=== PATIENT | male | born 1995 | race Caucasian/White ===

== ENCOUNTER 2017-11-27 10:03 | Emergency (ER) | payer BC ==
[2017-11-27] MEDS ORDERED: KETOROLAC 60 MG/2 ML VIAL IM STA (10:33)
--- NOTE | 2017-11-27 10:35 | ED ---
General Adult HPI - General Chief complaint: Chest Pain Stated complaint: chest pain Time Seen by Provider: 11/27/17 10:05 Source: patient, RN notes reviewed Mode of arrival: wheelchair - History of Present Illness Initial comments: This is a 22-year-old male who presents emergency Department with no significant past medical history. Patient states since Saturday he's been having a sharp chest pain or left side of his chest. Patient states he doesn't take deep breath he has no pain. Patient states with a deep breath cough or palpation he has increased pain. Patient does not remember doing anything that would've injured his chest. Patient denies any shortness of breath. Patient denies any diaphoresis. Patient denies any nausea. Patient denies any abdominal pain. Patient denies any calf pain. Patient denies any leg swelling. Patient has a recent long trips or travel. Her dizzy. Patient denies any near syncopal episode. - Related Data Home Medications Medication Instructions Recorded Confirmed Fludrocortisone Acetate 0.05 mg PO HS 06/07/14 11/27/17 Fludrocortisone Acetate 0.1 mg PO QAM 06/07/14 11/27/17 Hydrocortisone 2.5 mg PO W/LUNCH 06/07/14 11/27/17 Hydrocortisone 12.5 mg PO HS 06/07/14 11/27/17 Hydrocortisone 15 mg PO QAM 06/07/14 11/27/17 Allergies Allergy/AdvReac Type Severity Reaction Status Date / Time No Known Allergies Allergy Verified 11/27/17 10:21 Review of Systems ROS Statement: Those systems with pertinent positive or pertinent negative responses have been documented in the HPI. ROS Other: All systems not noted in ROS Statement are negative. Past Medical History Additional Past Medical History / Comment(s): congenital adrenal hyperplasia History of Any Multi-Drug Resistant Organisms: None Reported Past Surgical History: No Surgical Hx Reported Past Anesthesia/Blood Transfusion Reactions: No Reported Reaction Past Psychological History: No Psychological Hx Reported Smoking Status: Never smoker Past Alcohol Use History: None Reported Past Drug Use History: None Reported - Past Family History Mother Family Medical History: No Reported History General Exam - General Exam Comments Initial Comments: GENERAL: Patient is well-developed and well-nourished. Patient is nontoxic and well- hydrated and is in no acute distress. ENT: Neck is soft and supple. No significant lymphadenopathy is noted. Oropharynx is clear. Moist mucous membranes. Neck has full range of motion without eliciting any pain. EYES: The sclera were anicteric and conjunctiva were pink and moist. Extraocular movements were intact and pupils were equal round and reactive to light. Eyelids were unremarkable. PULMONARY: Unlabored respirations. Good breath sounds bilaterally. No audible rales rhonchi or wheezing was noted. CARDIOVASCULAR: There is a regular rate and rhythm without any murmurs gallops or rubs. Pain is reproducible. ABDOMEN: Soft and nontender with normal bowel sounds. No palpable organomegaly was noted. There is no palpable pulsatile mass. SKIN: Skin is clear with no lesions or rashes and otherwise unremarkable. NEUROLOGIC: Patient is alert and oriented x3. Cranial nerves II through XII are grossly intact. Motor and sensory are also intact. Normal speech, volume and content. Symmetrical smile. MUSCULOSKELETAL: Normal extremities with adequate strength and full range of motion. No lower extremity swelling or edema. No calf tenderness. LYMPHATICS: No significant lymphadenopathy is noted PSYCHIATRIC: Normal psychiatric evaluation. Course Vital Signs 11/27/17 10:07 Temperature 98.2 F Pulse Rate 84 Respiratory 18 Rate Blood Pressure 132/79 O2 Sat by Pulse 98 Oximetry Medical Decision Making - Medical Decision Making Chest x-ray shows no acute abnormality. When patient took off her shirt there was bruising CHEST he states this weekend he was out drinking he doesn't know what happened he didn't even realize he had bruising on his chest. Patient's EKG shows sinus bradycardia at 54 bpm NH interval is 126 QRS is 90 QT interval 394 QTC is 373. Patient's EKG shows no ST segment elevation or depression or T wave abnormalities are noted. Disposition Clinical Impression: Chest wall contusion Disposition: HOME SELF-CARE Condition: Good Instructions: Chest Wall Pain (ED) Additional Instructions: Patient should take Motrin 600 every 6 hours when necessary for pain. Is patient prescribed a controlled substance at d/c from ED?: No Referrals: Ramonita Ashley DO [Primary Care Provider] - 1-2 days
--- NOTE | 2017-11-27 11:56 | XR ---
EXAMINATION TYPE: XR chest 2V DATE OF EXAM: 11/27/2017 COMPARISON: 09/12/2014 INDICATION: Difficulty breathing TECHNIQUE: Frontal and lateral views of the chest are obtained. FINDINGS: The heart size is normal. The pulmonary vasculature is normal. The lungs are clear. IMPRESSION: 1. No acute pulmonary process.
[2017-11-27 12:37] VITALS: BP 126/57; PULSE 67; RESP 16; TEMP 98.5
== END 2017-11-27 12:36 | disposition home or self-care (01) ==
LOC: EC 10:03
DX: S20.219A Contusion of unspecified front wall of thorax, initial encounter (principal); Z79.52 Long term (current) use of systemic steroids
CPT/HCPCS: 99285; 96372; 93005; 71046; J1885

== ENCOUNTER 2023-12-18 22:28 | Emergency (ER) | payer BC ==
--- NOTE | 2023-12-19 00:16 | ED ---
General Adult HPI - General Chief complaint: Nausea/Vomiting/Diarrhea Stated complaint: Hot flashes, Vomit Time Seen by Provider: 12/18/23 23:51 Source: patient Mode of arrival: ambulatory Limitations: no limitations - History of Present Illness Initial comments: Dictation was produced using [employer] dictation software. please excuse any grammatical, word or spelling errors. Chief Complaint: 28-year-old male presents emergency department nausea vomiting and fatigue History of Present Illness: Patient 28-year-old male presents emergency department nausea vomiting and fatigue. Patient states that he was out all day in the sun baling hay. Patient states he was wearing a longsleeve shirt. Patient started to feel nauseated after being in the sun exposed to sunlight for hours. Patient denies any soreness. States that she started to chills. He had some episodes of vomiting. States his emesis is nonbilious nonbloody. The ROS documented in this emergency department record has been reviewed and confirmed by me. Those systems with pertinent positive or negative responses have been documented in the HPI. All other systems are other negative and/or noncontributory. - Related Data Home Medications Medication Instructions Recorded Confirmed Fludrocortisone Acetate 0.05 mg PO HS 06/07/14 11/27/17 Fludrocortisone Acetate 0.1 mg PO QAM 06/07/14 11/27/17 Hydrocortisone 2.5 mg PO W/LUNCH 06/07/14 11/27/17 Hydrocortisone 12.5 mg PO HS 06/07/14 11/27/17 Hydrocortisone 15 mg PO QAM 06/07/14 11/27/17 Allergies Allergy/AdvReac Type Severity Reaction Status Date / Time No Known Allergies Allergy Verified 12/18/23 22:51 Review of Systems ROS Statement: Those systems with pertinent positive or pertinent negative responses have been documented in the HPI. ROS Other: All systems not noted in ROS Statement are negative. Past Medical History Additional Past Medical History / Comment(s): congenital adrenal hyperplasia History of Any Multi-Drug Resistant Organisms: None Reported Past Surgical History: No Surgical Hx Reported Past Anesthesia/Blood Transfusion Reactions: No Reported Reaction Past Psychological History: Anxiety Smoking Status: Never smoker Past Alcohol Use History: Occasional Past Drug Use History: None Reported - Past Family History Mother Family Medical History: No Reported History General Exam - General Exam Comments Initial Comments: PHYSICAL EXAM: General Impression: Alert and oriented x3, not in acute distress HEENT: Normocephalic atraumatic, extra-ocular movements intact, pupils equal and reactive to light bilaterally, mucous membranes moist. Cardiovascular: Heart regular rate and rhythm Chest: Able to complete full sentences, no retractions, no tachypnea Abdomen: abdomen soft, non-tender, non-distended, no organomegaly Musculoskeletal: Pulses present and equal in all extremities, no peripheral jeremiah ma Motor: no focal deficits noted Neurological: CN II-XII grossly intact, no focal motor or sensory deficits noted Skin: First-degree musa to the face and hands Psych: Normal affect and mood Limitations: no limitations Course Vital Signs 12/18/23 12/19/23 22:52 01:25 Temperature 98.3 F Pulse Rate 92 72 Respiratory 18 16 Rate Blood Pressure 122/75 117/68 O2 Sat by Pulse 97 97 Oximetry Medical Decision Making - Medical Decision Making Was pt. sent in by a medical professional or institution (, PA, MOLD SHOP SUPERVISOR, urgent care, hospital, or senior living...) When possible be specific @ -No Did you speak to anyone other than the patient for history (EMS, parent, family, police, friend...)? What history was obtained from this source @ -No Did you review nursing and triage notes (agree or disagree)? Why? @ -I reviewed and agree with nursing and triage notes Were old charts reviewed (outside hosp., previous admission, EMS record, old EKG, old radiological studies, urgent care reports/EKG's, senior living records)? Report findings @ -No old charts were reviewed Differential Diagnosis (chest pain, altered mental status, abdominal pain women, abdominal pain men, vaginal bleeding, musculoskeletal, weakness, fever, dyspnea, syncope, headache, dizziness, GI bleed, back pain, seizure, CVA, palpatations, mental health)? @ -Differential Weakness: Hypoglycemia, shock, sepsis, hyponatremia, anemia, infection, GA, ETOH, adverse medicine reaction, overdose, stroke, this is not meant to be an all-inclusive list. EKG interpreted by me (3pts min.). @ -None done X-rays interpreted by me (1pt min.). @ -None done CT interpreted by me (1pt min.). @ -None done U/S interpreted by me (1pt. min.). @ -None done What testing was considered but not performed or refused? (CT, X-rays, U/S, labs)? Why? @ -None What meds were considered but not given or refused? Why? @ -None Did you discuss the management of the patient with other professionals (pro fessionals i.e. , PA, MOLD SHOP SUPERVISOR, lab, RT, psych nurse, manager social services, chuck splitter, teacher, stream control officer, telephonic case manager)? Give summary @ -No Was smoking cessation discussed for >3mins.? @ -No Was critical care preformed (if so, how long)? @ -No Were there social determinants of health that impacted care today? How? (Homelessness, low income, unemployed, alcoholism, drug addiction, transportation, low edu. Level, literacy, decrease access to med. care, detention, rehab)? @ -No Was there de-escalation of care discussed even if they declined (Discuss DNR or withdrawal of care, Hospice)? DNR status @ -No What co-morbidities impacted this encounter? (DM, HTN, Smoking, COPD, CAD, Cancer, CVA, ARF, Chemo, Hep., AIDS, mental health diagnosis, sleep apnea, morbid obesity)? @ -None Was patient admitted / discharged? Hospital course, mention meds given and route, prescriptions, significant lab abnormalities, going to OR and other pertinent info. @ -28-year-old male presents to the emergency department clinical presentation consistent with heat exhaustion. Vital signs upon arrival are within acceptable limits. Laboratory evaluation obtained. Mild acidosis dehydration. Slight leukocytosis 11.0. Patient given IV fluids and symptom treatment. Patient observed in the emergency department for approximately 3 hours reevaluated bedside at 1:30 AM found to be stable condition. Patient be discharged. Undiagnosed new problem with uncertain prognosis? @ -No Drug Therapy requiring intensive monitoring for toxicity (Heparin, Nitro, Insulin, Cardizem)? @ -No Were any procedures done? @ -No Diagnosis/symptom? Acute, or Chronic, or Acute on Chronic? Uncomplicated (without systemic symptoms) or Complicated (systemic symptoms)? @ -heat exhaustion Side effects of treatment? @ -No Exacerbation, Progression, or Severe Exacerbation? @ -No Poses a threat to life or bodily function? How? (Chest pain, USA, GA, pneumonia, PE, COPD, DKA, ARF, appy, cholecystitis, CVA, Diverticulitis, Homicidal, Suicidal, threat to staff... and all critical care pts) @ -No - Lab Data Result diagrams: 12/19/23 00:53 12/19/23 00:53 Lab Results 12/19/23 12/19/23 Range/Units 00:53 00:53 WBC 11.0 H (3.8-10.6) k/uL RBC 5.10 (4.30-5.90) m/uL Hgb 15.3 (13.0-17.5) gm/dL Hct 45.8 (39.0-53.0) % MCV 90.0 (80.0-100.0) fL MCH 30.1 (25.0-35.0) pg MCHC 33.5 (31.0-37.0) g/dL RDW 12.6 (11.5-15.5) % Plt Count 240 (150-450) k/uL MPV 8.6 Neutrophils % 53 % Lymphocytes % 35 % Monocytes % 8 % Eosinophils % 1 % Basophils % 1 % Neutrophils # 5.8 (1.3-7.7) k/uL Lymphocytes # 3.9 (1.0-4.8) k/uL Monocytes # 0.9 (0-1.0) k/uL Eosinophils # 0.1 (0-0.7) k/uL Basophils # 0.1 (0-0.2) k/uL Sodium 137 (137-145) mmol/L Potassium 3.1 L (3.5-5.1) mmol/L Chloride 109 H (98-107) mmol/L Carbon Dioxide 15 L (22-30) mmol/L Anion Gap 13 mmol/L BUN 26 H (9-20) mg/dL Creatinine 1.00 (0.66-1.25) mg/dL Est GFR (CKD-EPI)AfAm >90 (>60 ml/min/1.73 sqM) Est GFR (CKD-EPI)NonAf >90 (>60 ml/min/1.73 sqM) Glucose 88 (74-99) mg/dL Calcium 9.6 (8.4-10.2) mg/dL Disposition Clinical Impression: Heat exhaustion Disposition: HOME SELF-CARE Condition: Good Instructions (If sedation given, give patient instructions): Heat Exhaustion (ED) Is patient prescribed a controlled substance at d/c from ED?: No Referrals: None,Stated [Primary Care Provider] - 1-2 days Time of Disposition: 01:34
[2023-12-19] MEDS: SODIUM CHLORIDE 0.9% 1,000 ML IV STA (00:54)
[2023-12-19] MEDS: ONDANSETRON 4 MG/2 ML VIAL IVP STA (00:55)
[2023-12-19] MEDS: KETOROLAC 15 MG/ML 1 ML VIAL IVP STA (00:55)
[2023-12-19 01:15] LABS: Basophils # (A) 0.1 k/uL (0-0.2); Basophils % (A) 1 %; Eosinophils # (A) 0.1 k/uL (0-0.7); Eosinophils % (A) 1 %; HCT 45.8 % (39.0-53.0); HGB 15.3 gm/dL (13.0-17.5); Lymphocytes # (A) 3.9 k/uL (1.0-4.8); Lymphocytes % (A) 35 %; MCH 30.1 pg (25.0-35.0); MCHC 33.5 g/dL (31.0-37.0); Mean Platelet Volume 8.6; Monocytes # (A) 0.9 k/uL (0-1.0); Monocytes % (A) 8 %; Neutrophils # (A) 5.8 k/uL (1.3-7.7); Neutrophils % (A) 53 %; Platelet Count 240 k/uL (150-450); RDW 12.6 % (11.5-15.5)
[2023-12-19 01:26] VITALS: RESP 16
[2023-12-19 01:27] LABS: African American GFR (CKD) >90 (>60 ml/min/1.73 sqM); Anion Gap 13 mmol/L; Blood Urea Nitrogen 26 mg/dL (9-20); Calcium 9.6 mg/dL (8.4-10.2); Carbon Dioxide 15 mmol/L (22-30); Chloride 109 mmol/L (98-107); Glucose 88 mg/dL (74-99); Non-African American GFR(CKD) >90 (>60 ml/min/1.73 sqM); Potassium 3.1 mmol/L (3.5-5.1); Sodium 137 mmol/L (137-145)
[2023-12-19] MEDS: POTASSIUM CHLORIDE ER 20 MEQ TAB.ER PO STA (01:58)
[2023-12-19 02:06] VITALS: BP 110/65; PULSE 74; TEMP 98.1
== END 2023-12-19 02:06 | disposition home or self-care (01) ==
LOC: EC 22:28
DX: T67.5XXA Heat exhaustion, unspecified, initial encounter (principal); X30.XXXA Exposure to excessive natural heat, initial encounter
CPT/HCPCS: 36415; 80048; 85025; 99284; 96374; 96375; 96361; J2405; J1885